=== PATIENT | male | born 1950 | race African-American/Black ===

== ENCOUNTER 2018-01-12 16:41 | Emergency (ER) | payer BC, MEDICARE ==
[2018-01-12 17:30] LABS: #Basophils 0.2 thou/uL (0.0-0.2); #Eosinphils 0.1 thou/uL (0.0-0.7); #Lymphocytes 2.5 thou/uL (1.20-3.40); #Monocytes 0.4 thou/uL (0.11-0.59); #Neutrophils 6.7 thou/uL (1.40-6.50); %Basophils 2.3 % (0.0-1.0); %Eosinophils 1.5 % (0.0-10.0); %Lymphocytes 24.9 % (21.0-51.0); %Monocytes 4.4 % (0.0-10.0); %Neutrophils 66.9 % (42.0-75.0); Hemoglobin 9.3 g/dL (14.0-18.0); Mean Corpuscular HGB CONC 31.7 g/dL (32.0-36.0); Mean Corpuscular Hemoglobin 29.8 pg (27.0-31.0); Mean Corpuscular Volume 94.1 fL (78.0-98.0); Mean Platelet Volume 7.6 fL (7.4-10.4); Platelet Count 272 thou/uL (130-400); RBC Distribution Width 14.8 % (11.5-14.5); Red Blood Cell (RBC) Count 3.12 mill/uL (4.70-6.10)
[2018-01-12 17:41] LABS: ALT (SGPT) 16 U/L (8-55); AST (SGOT) 14 U/L (5-34); Albumin 3.9 g/dL (3.4-4.8); Alkaline Phosphatase 49 U/L (40-150); Anion Gap 15 mmol/L (10-20); BUN (Urea Nitrogen) 17 mg/dL (8.4-25.7); Bilirubin, Total 0.4 mg/dL (0.2-1.2); Calc. Creatinine Clearance 0 mL/min (70-130); Calcium 9.7 mg/dL (7.8-10.44); Carbon Dioxide 30 mmol/L (23-31); Chloride 104 mmol/L (98-107); Estimated GFR-MDRD Greater than 90; Globulin 3.8 g/dL (2.4-3.5); Glucose 81 mg/dL (80-115); Potassium 4.9 mmol/L (3.5-5.1); Protein, Total 7.7 g/dL (5.8-8.1); Sodium 144 mmol/L (136-145)
[2018-01-12 17:43] LABS: CKMB 2.8 ng/mL (0-6.6)
[2018-01-12] MEDS ORDERED: methylPREDNISolone Sod Succ/PF 125 MG/2 ML VIAL ONE (18:02)
--- NOTE | 2018-01-12 18:49 | RAD ---
AP VIEW CHEST: 01/12/2018 HISTORY: Dyspnea. FINDINGS: AP view chest demonstrates some cardiomegaly and pulmonary vascular congestion. No evidence of effus ions, pneumonia, or pneumothorax is seen. IMPRESSION: Cardiomegaly and pulmonary vascular congestion; otherwise unremarkable anterior-posterior view chest. POS: [facility]
== END 2018-01-12 18:46 | disposition short-term general hospital (02) ==
LOC: MADERS 16:41
DX: J44.1 Chronic obstructive pulmonary disease with (acute) exacerbation (principal); D64.9 Anemia, unspecified; I10 Essential (primary) hypertension; G47.33 Obstructive sleep apnea (adult) (pediatric); E11.9 Type 2 diabetes mellitus without complications; E78.5 Hyperlipidemia, unspecified; F32.9 Major depressive disorder, single episode, unspecified; F17.210 Nicotine dependence, cigarettes, uncomplicated; Z79.899 Other long term (current) drug therapy; Z79.84 Long term (current) use of oral hypoglycemic drugs
CPT/HCPCS: 36415; 71045; 80053; 82274; 82553; 83605; 83880; 84484; 85025; 87040; 87804; 93005; 94640; 94760; 96374; J2930; J7620

== ENCOUNTER 2018-02-10 15:39 | Emergency (ER) | payer MEDICARE ==
[~2018-02-10 15:39] MED LIST: Sodium Chloride 0.9% 1,000 ML BAG ONE
[2018-02-10 16:29] LABS: #Basophils 0.1 thou/uL (0.0-0.2); #Eosinphils 0.3 thou/uL (0.0-0.7); #Lymphocytes 1.8 thou/uL (1.20-3.40); #Monocytes 0.6 thou/uL (0.11-0.59); #Neutrophils 2.8 thou/uL (1.40-6.50); %Eosinophils 5.5 % (0.0-10.0); %Lymphocytes 31.8 % (21.0-51.0); %Monocytes 10.1 % (0.0-10.0); %Neutrophils 50.7 % (42.0-75.0); Hemoglobin 9.4 g/dL (14.0-18.0); Mean Corpuscular HGB CONC 30.2 g/dL (32.0-36.0); Mean Corpuscular Hemoglobin 28.3 pg (27.0-31.0); Mean Corpuscular Volume 93.9 fL (78.0-98.0); Mean Platelet Volume 8.1 fL (7.4-10.4); Platelet Count 248 thou/uL (130-400); RBC Distribution Width 15.1 % (11.5-14.5); White Blood Cell (WBC) Count 5.5 thou/uL (4.8-10.8)
--- NOTE | 2018-02-10 16:30 | RAD ---
PORTABLE AP CHEST: Date: 02/10/18 HISTORY: Dyspnea. COMPARISON: 01/12/18. FINDINGS: Cardiac silhouette and pulmonary vasculature are within normal limits. There are linear densities see n at the medial right lung base, which may be related to either scarring or atelectasis. The lungs ar e otherwise clear. Vascular calcifications are seen in the thoracic aorta. Calcifications seen adjace nt to the right humeral head which may be related to calcific peritendinitis. IMPRESSION: 1. No acute cardiopulmonary process. 2. Atelectasis versus scarring right lung base. POS: [facility]
[2018-02-10 17:17] LABS: Clarity Hazy (Clear); Specific Gravity, Urine 1.025 (1.005-1.030)
[2018-02-10 17:18] LABS: Bilirubin Negative (Negative); Blood, Urine Negative (Negative); Glucose, Urine (Dipstick) Negative (Negative); Leukocyte Negative (Negative); Nitrite Negative (Negative); Protein, Urine (Dipstick) 30 mg/dL (Neg-Trace); Urobilinogen 0.2 mg/dL (0.2-1.0); pH, Urine 5.5 (5.0-9.0)
[2018-02-10 17:18] LABS: ALT (SGPT) 15 U/L (8-55); AST (SGOT) 15 U/L (5-34); Albumin 3.6 g/dL (3.4-4.8); Alkaline Phosphatase 35 U/L (40-150); Anion Gap 14 mmol/L (10-20); BUN (Urea Nitrogen) 32 mg/dL (8.4-25.7); Bilirubin, Total 0.4 mg/dL (0.2-1.2); Calc. Creatinine Clearance 0 mL/min (70-130); Calcium 9.5 mg/dL (7.8-10.44); Carbon Dioxide 36 mmol/L (23-31); Chloride 100 mmol/L (98-107); Estimated GFR-MDRD 88; Globulin 3.2 g/dL (2.4-3.5); Glucose 99 mg/dL (80-115); Potassium 5.4 mmol/L (3.5-5.1); Protein, Total 6.8 g/dL (5.8-8.1); Sodium 145 mmol/L (136-145)
[2018-02-10 17:31] LABS: Bacteria/HPF Rare-Few HPF (None Seen); Crystals/HPF 2+ AMORPH URATES HPF (Negative); Hyaline Casts/LPF 0-3 HYALINE CAST LPF (0-3 Hyaline); RBC/HPF None Seen HPF (0-3); Squamous Epithelial 0-3 HPF (0-3); WBC/HPF None Seen HPF (0-3)
[2018-02-10 17:42] LABS: pH (Venous) 7.353 (7.35-7.45)
[2018-02-10 17:43] LABS: Base Excess-Venous 13.6 mmol/L (0 (+/- 2.5)); Bicarbonate (HCO3v) 42.2 mmol/L (22.0-29.0); CO2 Tension (PvCO2) 75.8 mmHg (41.0-51.0); O2 Tension (PvO2) 166.8 mmHg (35.0-45.0)
[2018-02-10 17:44] LABS: Calcium, Ionized 1.11 mmol/L (1.12-1.32); Hemoglobin - Calc 11.6 g/dL (12.0-18.0); Potassium 7.3 mmol/L (3.4-4.7); T. Carbon Dioxide 44.5 mmol/L (1.0-85.0); vO2 Saturation-calc 99.3 % (94-98)
[2018-02-10 17:55] LABS: CKMB 1.9 ng/mL (0-6.6)
[2018-02-11 12:59] LABS: Lactate 0.92 mmol/L (0.50-2.20)
== END 2018-02-10 18:40 | disposition short-term general hospital (02) ==
LOC: MADERS 15:39
DX: R53.1 Weakness (principal); R79.89 Other specified abnormal findings of blood chemistry; G47.33 Obstructive sleep apnea (adult) (pediatric); E11.9 Type 2 diabetes mellitus without complications; E78.5 Hyperlipidemia, unspecified; I10 Essential (primary) hypertension; J44.9 Chronic obstructive pulmonary disease, unspecified; F32.9 Major depressive disorder, single episode, unspecified; F17.210 Nicotine dependence, cigarettes, uncomplicated; Z79.899 Other long term (current) drug therapy; Z79.84 Long term (current) use of oral hypoglycemic drugs
CPT/HCPCS: 71045; 80053; 81003; 81015; 82330; 82553; 82803; 83605; 83880; 84484; 85025; 93005; 96360; 96361; J7050